=== PATIENT | male | born 1980 | race Caucasian/White ===

== ENCOUNTER 2024-09-02 18:36 | Emergency (ER) | payer SELFPAY ==
[~2024-09-02] VITALS: Ht 177.8 cm; Wt 136.1 kg
[2024-09-02] MEDS ORDERED: Ketorolac Tromethamine 15mg Vial IV ONE (18:45)
[2024-09-02] MEDS ORDERED: Lactated Ringer's 1,000 ML IV ONE (18:50)
[2024-09-02 19:11] LABS: BASOPHILS ABSOLUTE AUTO 0.08 K/mm3 (0.00-0.23); BASOPHILS PERCENT AUTO 1 % (0-2); EOSINOPHILS ABSOLUTE AUTO 0.07 K/mm3 (0.00-0.68); EOSINOPHILS PERCENT AUTO 1 % (0-6); Hemoglobin 20.2 g/dL (13.5-17.5); IMMATURE GRAN ABSOLUTE AUTO 0.02 K/mm3 (0.00-0.10); IMMATURE GRAN PERCENT AUTO 0 % (0-1); LYMPHOCYTES ABSOLUTE AUTO 2.51 K/mm3 (0.84-5.20); LYMPHOCYTES PERCENT AUTO 26 % (21-46); MONOCYTES ABSOLUTE AUTO 0.75 K/mm3 (0.16-1.47); MONOCYTES PERCENT AUTO 8 % (4-13); Mean Corpuscular HGB 28.3 pg (26.0-34.0); Mean Corpuscular Volume 83 fL (80-100); Mean Platelet Volume 10.4 fL (9.1-12.4); NEUTROPHILS ABSOLUTE AUTO 6.32 K/mm3 (1.96-9.15); NEUTROPHILS PERCENT AUTO 65 % (41-73); Platelet Count 292 K/mm3 (150-400); RDW Coefficient Variation 13.4 % (11.7-14.2); RDW Standard Deviation 39.3 fL (35.1-46.3); Red Blood Cell Count 7.15 M/mm3 (4.30-5.90); White Blood Cell Count 9.75 K/mm3 (4.00-11.30)
[2024-09-02 19:22] LABS: Hematocrit 59.4 % (37.0-53.0)
[2024-09-02 19:37] LABS: CORONAVIRUS COVID-19 AG Negative (NEGATIVE); INFLUENZA A AG Negative (NEGATIVE); INFLUENZA B AG Negative (NEGATIVE)
[2024-09-02 19:45] LABS: Albumin, Blood 4.2 g/dL (3.4-5.0); Bun/Creatinine Ratio 15.2 (12.0-20.0); Calcium, Blood 9.7 mg/dL (8.5-10.1); Creatinine, Blood 1.12 mg/dL (0.60-1.20); Free Thyroxine 1.27 ng/dL (0.70-1.60); Globulin, Blood 4.3 g/dL (2.2-4.0); Magnesium, Blood 2.2 mg/dL (1.6-2.4); Potassium, Blood 3.6 mmol/L (3.5-5.5); Thyroid Stimulating Hormone 2.36 uIU/mL (0.360-4.800); Total Protein, Blood 8.5 g/dL (6.4-8.2)
[2024-09-02 20:02] LABS: Source, Urine Clean Catch
[2024-09-02 20:12] LABS: Appearance, Urine Clear (Clear); Bilirubin, Urine Neg (Neg); Blood, Urine Neg (Neg); Color, Urine Yellow (P-Yellow); Glucose Qualitative, Urine 4+ (Neg); Ketones, Urine 3+ (Neg); Leukocyte Esterase, Urine Neg (Neg); Nitrite, Urine Neg (Neg); Protein, Urine Neg (Neg); Urobilinogen, Urine NORM (Normal)
[2024-09-02 20:24] LABS: U Amphetamine Screen Not Detected; U Barbituate Screen Not Detected; U Benzodiazapine Screen Not Detected; U Buprenorphine Screen Not Detected; U Cannabinoids Screen Not Detected; U Cocaine Screen Not Detected; U Methadone Screen Not Detected; U Methamphetamine Screen Not Detected; U Opiates Screen Not Detected; U Oxycodone Screen Not Detected; U Phencyclidine Screen Not Detected
[2024-09-02] MEDS ORDERED: Diazepam 5 MG / ML 2ML SYR IV ONE (20:40)
== END 2024-09-02 21:21 | disposition left against medical advice (07) ==
LOC: ER 18:36
PROVIDERS: Student in an Organized Health Care Education/Training Program
DX: R55 Syncope and collapse (principal); R07.2 Precordial pain; E86.0 Dehydration; E11.9 Type 2 diabetes mellitus without complications; I50.9 Heart failure, unspecified; Z53.29 Procedure and treatment not carried out because of patient's decision for other reasons
CPT/HCPCS: 71045; 71260; 80053; 81003; 82947; 83690; 83735; 83880; 84439; 84443; 84484; 85025; 87428-QW; 93005; 93010; 96361; 96374-59; 96375-59; 99285-25; J1885; J3360; J7120; Q9967